=== PATIENT | female | born 1970 | race Caucasian/White ===

== ENCOUNTER 2016-12-26 12:33 | Emergency (ER) | payer SELFPAY ==
[2016-12-26 12:54] VITALS: BP 120/59; PULSE 70; RESP 16; TEMP 96.8; O2SAT 97
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
== END 2016-12-26 13:19 | disposition home or self-care (01) ==
LOC: CED 12:33
DX: T25.222A Burn of second degree of left foot, initial encounter (principal); X10.2XXA Contact with fats and cooking oils, initial encounter
CPT/HCPCS: 99202-PO; G0463-PO